=== PATIENT | female | born 1965 | race African-American/Black ===

== ENCOUNTER 2017-04-24 20:38 | Emergency (ER) | payer OTHER ==
[~2017-04-24] VITALS: Ht 165.1 cm; Wt 82.0 kg
[2017-04-25 05:15] VITALS: BP 111/62
== END 2017-04-25 06:57 | disposition home or self-care (01) ==
LOC: ER 20:39
DX: I10 Essential (primary) hypertension (principal); R12 Heartburn; E03.9 Hypothyroidism, unspecified; Z88.6 Allergy status to analgesic agent
CPT/HCPCS: 71020; 99284